=== PATIENT | female | born 1965 | race Hispanic/Latino ===

== ENCOUNTER 2017-05-08 00:48 | Emergency (ER) | payer BC ==
[2017-05-08] MEDS ORDERED: KETOROLAC TROMETHAMINE 30MG/ML ONE (04:30)
[2017-05-08] MEDS ORDERED: CYCLOBENZAPRINE HCL 10 MG TABLET ONE (04:31)
== END 2017-05-08 04:40 | disposition home or self-care (01) ==
LOC: EDH 00:48
DX: S16.1XXA Strain of muscle, fascia and tendon at neck level, initial encounter (principal); S80.02XA Contusion of left knee, initial encounter; S30.0XXA Contusion of lower back and pelvis, initial encounter; V27.4XXA Motorcycle driver injured in collision with fixed or stationary object in traffic accident, initial encounter; Y93.89 Activity, other specified; Y92.89 Other specified places as the place of occurrence of the external cause; Y99.8 Other external cause status
CPT/HCPCS: 72100; 72125; 73562; 96372; 99284; J1885

== ENCOUNTER 2018-01-15 20:58 | Emergency (ER) | payer BC, OTHER, SELFPAY | END 2018-01-15 22:29 | disposition home or self-care (01) | LOC: EDH 20:58 | DX: J06.9 Acute upper respiratory infection, unspecified (principal); J04.0 Acute laryngitis; Z79.899 Other long term (current) drug therapy; Z90.49 Acquired absence of other specified parts of digestive tract | CPT/HCPCS: 99281 ==

== ENCOUNTER → 2019-09-22 | Outpatient (CLI) | payer BC | END | disposition home or self-care (01) | LOC: RAH 09:14 | PROVIDERS: ATTEND Obstetrics & Gynecology | DX: Z12.31 Encounter for screening mammogram for malignant neoplasm of breast (principal) | CPT/HCPCS: 77067 ==

== ENCOUNTER → 2020-07-25 | Outpatient (CLI) | payer BC | END | disposition home or self-care (01) | LOC: RAH 08:48 | PROVIDERS: ATTEND Family Medicine | DX: S83.242A Other tear of medial meniscus, current injury, left knee, initial encounter (principal); M71.22 Synovial cyst of popliteal space [Baker], left knee; X58.XXXA Exposure to other specified factors, initial encounter; Y93.89 Activity, other specified; Y92.89 Other specified places as the place of occurrence of the external cause; Y99.8 Other external cause status; Z78.9 Other specified health status | CPT/HCPCS: 73721 ==